=== PATIENT | female | born 1995 | race Caucasian/White ===

== ENCOUNTER 2019-10-04 17:04 | Emergency (ER) | payer OTHER ==
[~2019-10-04] VITALS: Ht 152.4 cm; Wt 44.5 kg
[2019-10-04] MEDS ORDERED: LEVOTHYROXINE25 MCG (17:29)
[2019-10-04] MEDS ORDERED: PRENA1 PEARL S1 EACH (17:30)
[2019-10-04] MEDS ORDERED: FOLIC ACID0.8 M1 (17:30)
== END 2019-10-04 22:16 | disposition home or self-care (01) ==
LOC: ER 17:04
DX: O20.0 Threatened abortion (principal); O26.891 Other specified pregnancy related conditions, first trimester; Z3A.10 10 weeks gestation of pregnancy

== ENCOUNTER → 2019-10-10 | Outpatient (CLI) | payer OTHER ==
[~2019-10-10] MED LIST: FOLIC ACID0.8 M1; LEVOTHYROXINE25 MCG; PRENA1 PEARL S1 EACH
== END | disposition home or self-care (01) ==
LOC: PRENATAL 14:47
DX: O35.0XX0 Maternal care for (suspected) central nervous system malformation in fetus, not applicable or unspecified (principal); O36.80X0 Pregnancy with inconclusive fetal viability, not applicable or unspecified; Z36.89 Encounter for other specified antenatal screening

== ENCOUNTER 2019-10-30 19:04 | Emergency (ER) | payer OTHER ==
[~2019-10-30] VITALS: Ht 152.4 cm; Wt 44.9 kg
== END 2019-10-30 20:19 | disposition home or self-care (01) ==
LOC: ER 19:04
DX: O26.891 Other specified pregnancy related conditions, first trimester (principal); Z3A.14 14 weeks gestation of pregnancy; S91.141A Puncture wound with foreign body of right great toe without damage to nail, initial encounter; W45.0XXA Nail entering through skin, initial encounter; Y93.E9 Activity, other interior property and clothing maintenance; Y92.098 Other place in other non-institutional residence as the place of occurrence of the external cause; Y99.8 Other external cause status

== ENCOUNTER → 2019-11-30 | Outpatient (CLI) | payer OTHER | END | disposition home or self-care (01) | LOC: PRENATAL 08:00 | PROVIDERS: ATTEND Obstetrics & Gynecology | DX: O35.3XX1 Maternal care for (suspected) damage to fetus from viral disease in mother, fetus 1 (principal); O35.0XX1 Maternal care for (suspected) central nervous system malformation in fetus, fetus 1; O99.89 Other specified diseases and conditions complicating pregnancy, childbirth and the puerperium ==

== ENCOUNTER 2020-02-12 15:24 | Inpatient (IN) | payer OTHER ==
[~2020-02-12] VITALS: Ht 154.9 cm; Wt 50.8 kg
[2020-02-12] MEDS ORDERED: SYNTHROID50 MCG PO (17:47)
== END 2020-03-20 10:45 | DRG 805 ==
LOC: LDR 15:24 → OB/GYN 15:24 → LDR 02-13 01:37 → OB/GYN 02-14 08:04 → SURG-SUITE 03-19 15:51
PROVIDERS: ADMIT Obstetrics & Gynecology; ATTEND Obstetrics & Gynecology
PROC: BY4FZZZ Ultrasonography of Third Trimester, Single Fetus (ICD-10-PCS; 2020-02-12)
PROC: 4A1HXCZ Monitoring of Products of Conception, Cardiac Rate, External Approach (ICD-10-PCS; 2020-02-12)
PROC: BY4FZZZ Ultrasonography of Third Trimester, Single Fetus (ICD-10-PCS; 2020-02-27)
PROC: 10E0XZZ Delivery of Products of Conception, External Approach (ICD-10-PCS; principal; 2020-03-18)
PROC: 0UQMXZZ Repair Vulva, External Approach (ICD-10-PCS; 2020-03-18)
DX: O71.82 Other specified trauma to perineum and vulva (principal); O60.14X0 Preterm labor third trimester with preterm delivery third trimester, not applicable or unspecified; Z37.0 Single live birth; O26.873 Cervical shortening, third trimester; O26.843 Uterine size-date discrepancy, third trimester; Z20.828 Contact with and (suspected) exposure to other viral communicable diseases; Z3A.34 34 weeks gestation of pregnancy